=== PATIENT | male | born 1965 | race Two or more races ===

== ENCOUNTER 2017-03-29 10:16 | Emergency (ER) | payer SELFPAY ==
[~2017-03-29] VITALS: Ht 167.6 cm; Wt 70.3 kg
[2017-03-29 10:22] VITALS: BP 143/90
[2017-03-29 11:57] LABS: HEMATOCRIT 53 % (39-51); HEMOGLOBIN 18.7 g/dL (13.5-17.5); MEAN CORPUSCULAR HEMOGLOBIN 32 PG (26.0-33.0); MEAN CORPUSCULAR VOLUME 91 fL (80-96); RED BLOOD CELL COUNT(AUTO) 5.88 MIL/uL (4.5-6.0); WHITE BLOOD COUNT (AUTO) 9.2 K/uL (4.3-11.0)
[2017-03-29 11:58] LABS: BASOPHILS % (AUTO) 0.5 % (0.0-2.0); EOSINOPHILS % (AUTO) 0.2 % (0.0-6.0); LYMPHOCYTES # (AUTO) 1.7 /CMM (0.8-4.8); LYMPHOCYTES % (AUTO) 18.7 % (20.0-44.0); MEAN CORPUSCULAR HGB CONC 35 g/dl (31.0-36.0); MONOCYTES # (AUTO) 0.5 /CMM (0.1-1.30); NEUTROPHILS % (AUTO) 75.6 % (43.0-81.0); PLATELET COUNT (AUTO) 267 /CMM (150-450); RDW COEFFICIENT OF VARIATION 12.3 (11.5-15.0)
[2017-03-29 12:14] LABS: ALBUMIN 3.9 g/dL (3.4-5.0); BILIRUBIN,DIRECT 0.1 mg/dL (0.0-0.2); BILIRUBIN,TOTAL 0.5 mg/dL (0.2-1.0); CALCIUM, SERUM 8.2 mg/dL (8.5-10.1); CREATININE 0.8 mg/dL (0.6-1.3); POTASSIUM 4.1 mmol/L (3.5-5.1); SALICYLATE 0.6 mg/dL (2.8-20.0); TOTAL PROTEIN, SERUM 8.6 g/dL (6.4-8.2)
== END 2017-03-29 14:34 | disposition home or self-care (01) ==
LOC: ER 10:17
DX: F10.129 Alcohol abuse with intoxication, unspecified (principal)
CPT/HCPCS: 36415; 80048; 80076; 80329; 85025; 99284; A4606; G0480 ×2; Z7610

== ENCOUNTER 2017-04-01 20:45 | Emergency (ER) | payer MEDICAID ==
[~2017-04-01] VITALS: Ht 160 cm; Wt 63.5 kg
--- NOTE | 2017-04-01 20:53 | NUR ---
PT TO ER BED 8. PT BIBRA C/O "DRINKING TOO MUCH AND NEEDS SOMETHING FOR THE ACID". NOTED ETOH, PT TRYING TO MAKE HIMSELF VOMIT. PT PLACED ON [employer]IP[employer]. VSS/RESP EVEN UNLABORED/NAD NOTED/SKIN WARM AND DRY/AOX4. AWAITING MD GRIFFITHS.
[2017-04-01] MEDS ORDERED: IV NS 0.9% 1,000 ML BAG IV ONE (21:00)
[2017-04-01] MEDS ORDERED: ONDANSETRON HCL/PF 4 MG/2 ML VIAL IVP ONE (21:00)
--- NOTE | 2017-04-01 21:00 | NUR ---
LAB AT BEDSIDE FOR DRAW.
[2017-04-01 21:06] LABS: BASOPHILS # (AUTO) 0.1 /CMM (0.0-0.2); BASOPHILS % (AUTO) 1.9 % (0.0-2.0); HEMATOCRIT 42 % (39-51); HEMOGLOBIN 14.4 g/dL (13.5-17.5); LYMPHOCYTES # (AUTO) 0.9 /CMM (0.8-4.8); LYMPHOCYTES % (AUTO) 12.6 % (20.0-44.0); MEAN CORPUSCULAR HEMOGLOBIN 31 PG (26.0-33.0); MEAN CORPUSCULAR HGB CONC 34 g/dl (31.0-36.0); MEAN CORPUSCULAR VOLUME 91 fL (80-96); MONOCYTES # (AUTO) 0.5 /CMM (0.1-1.30); MONOCYTES % (AUTO) 6.8 % (2.0-12.0); NEUTROPHILS % (AUTO) 78.7 % (43.0-81.0); PLATELET COUNT (AUTO) 176 /CMM (150-450); RDW COEFFICIENT OF VARIATION 12.1 (11.5-15.0); RED BLOOD CELL COUNT(AUTO) 4.67 MIL/uL (4.5-6.0); WHITE BLOOD COUNT (AUTO) 7.5 K/uL (4.3-11.0)
[2017-04-01] MEDS ORDERED: MAG HYDROX/AL HYDROX/SIMETH 30 ML UDC ONE (21:08)
[2017-04-01] MEDS ORDERED: ONDANSETRON HCL/PF 4 MG/2 ML VIAL ONE (21:08)
[2017-04-01 21:17] LABS: CALCIUM, SERUM 8.1 mg/dL (8.5-10.1); CREATININE 0.7 mg/dL (0.6-1.3); POTASSIUM 3.5 mmol/L (3.5-5.1)
--- NOTE | 2017-04-01 21:17 | NUR ---
17G IV TO LAC X 1 ATTEMPT USING ASEPTIC TECH, IV FLUSHES EASILY WITH NS. MEDICATED PER MD ORDERS.
[2017-04-01 21:23] LABS: ALBUMIN 3.2 g/dL (3.4-5.0); BILIRUBIN,DIRECT 0.1 mg/dL (0.0-0.2); BILIRUBIN,TOTAL 0.3 mg/dL (0.2-1.0); TOTAL PROTEIN, SERUM 7.4 g/dL (6.4-8.2)
[2017-04-01] MEDS ORDERED: MAG HYDROX/AL HYDROX/SIMETH 30 ML UDC PO ONE (21:30)
[2017-04-01 22:03] VITALS: BP 142/95
--- NOTE | 2017-04-01 22:06 | NUR ---
PT AWAKE AND ALERT, VSS.
--- NOTE | 2017-04-01 22:34 | NUR ---
Patient eloped from facility. ER MD notified.
--- NOTE | 2017-04-01 22:38 | NUR ---
PT IV WAS REMOVED.
== END 2017-04-01 22:38 | disposition left against medical advice (07) ==
LOC: ER 20:48
DX: Z53.21 Procedure and treatment not carried out due to patient leaving prior to being seen by health care provider (principal)
CPT/HCPCS: 36415; 71045; 80048; 80076; 83690; 85025; A4606 ×2; G0480; J2405; J7030; Z7610